=== PATIENT | male | born 1980 | race Two or more races ===

== ENCOUNTER 2025-05-01 23:53 | Inpatient (IN) | payer OTHER ==
[~2025-05-01] VITALS: Ht 188 cm; Wt 102.3 kg
[2025-05-02] VITALS (10 sets, daily range): BP systolic 105–156; BP diastolic 72–98; TEMP 98.6–99.7; O2SAT 94–98
[2025-05-02] MEDS ORDERED: IOHEXOL-300 100 ML VIAL IV ONE (00:24)
[2025-05-02] MEDS ORDERED: CT SWABBABLE VALVE TRANS SET 1 EA INFUS.SET MC ONE (00:24)
[2025-05-02] MEDS ORDERED: IV NS 0.9% 250 ML IV ONE (00:24)
[2025-05-02] MEDS ORDERED: MORPHINE SULFATE INJ 4 MG/ML DISP.SYRIN ONE ×2 (00:39→03:55)
[2025-05-02] MEDS ORDERED: ONDANSETRON HCL/PF 4 MG/2 ML VIAL ONE (00:39)
[2025-05-02 00:44] LABS: PLATELET COUNT (AUTO) 399 K/uL (150-450); RED BLOOD CELL COUNT(AUTO) 4.78 MIL/uL (4.5-6.0); RED CELL DISTRIBUTION WIDTH 15.5 % (11.5-15.0); WHITE BLOOD COUNT (AUTO) 16.3 K/uL (4.3-11.0)
[2025-05-02] MEDS: ONDANSETRON HCL/PF 4 MG/2 ML VIAL IVP ONE (00:48)
[2025-05-02] MEDS: MORPHINE SULFATE INJ 2 MG/ML DISP.SYRIN IV ONE (00:48)
[2025-05-02] MEDS: IV NS 0.9% 1,000 ML BAG IV ONE (00:48)
[2025-05-02 00:49] LABS: CALCIUM, SERUM 8.5 mg/dL (8.5-10.1); CREATININE 0.9 mg/dL (0.6-1.3); SODIUM SERUM 139.0 mmol/L (136-145); UREA NITROGEN, BLOOD 11.0 mg/dL (7-18)
[2025-05-02 00:51] LABS: APPEARANCE,URINE CLEAR (CLEAR); BLOOD, URINE 3+ Ery/uL (NEGATIVE); LEUKOCYTE ESTERASE ,URINE NEGATIVE (NEGATIVE); NITRITE, URINE NEGATIVE (NEGATIVE); UGLUCOSE NEGATIVE (NEGATIVE)
[2025-05-02 00:55] LABS: ASPARTATE AMINOTRANSFERASE 16.0 U/L (15-37); TOTAL PROTEIN, SERUM 7.4 g/dL (6.4-8.2)
[2025-05-02 00:58] LABS: ADD URINE CULTURE NO; LACTIC ACID 0.6 mmol/L (0.4-2.0); SQUAMOUS EPITHELIAL CELL,UR None Seen /HPF (None Seen)
[2025-05-02] MEDS ORDERED: PIPERACI/TAZO 3.375GM/D5W 50ML PB IV ONE (02:01)
[2025-05-02] MEDS: PIPERACILLIN /TAZOBACTAM 2.25 G in IV D5W 50 ML IV ONE (02:06)
[2025-05-02] MEDS ORDERED: FENTANYL PF 250MCG/5ML AMPUL ONE ×2 (03:23→03:55)
[2025-05-02] MEDS ORDERED: SEVOFLURANE 250 ML BOTTLE IH ONE (03:24)
[2025-05-02] MEDS ORDERED: SUCCINYLCHOLINE CHLORIDE 20 MG/ML VIAL ONE (03:24)
[2025-05-02] MEDS ORDERED: ROCURONIUM BROMIDE 50 MG/5 ML ONE (03:25)
[2025-05-02] MEDS ORDERED: HYDROMORPHONE INJ 2 MG/ML DISP.SYRIN ONE (06:31)
[2025-05-02] MEDS ORDERED: ANESTHESIA TRAY IN PYXIS 1 EA TRAY MC ONE (06:57)
[2025-05-02] MEDS ORDERED: HYDROMORPHONE 1 MG/1 ML DISP.SYRIN IV PRN (08:00)
[2025-05-02] MEDS: HYDROMORPHONE 1 MG/1 ML DISP.SYRIN IV PRN (09:47)
[2025-05-02] MEDS: ZOSYN IVPB 3.375 G in IV D5W 50ml IV SCH (09:47)
[2025-05-03] MEDS ORDERED: hydrALAZINE HCL IV 20 MG VIAL IV PRN (06:30)
[2025-05-03] MEDS ORDERED: ACETAMINOPHEN 325 MG TABLET PO PRN (06:30)
[2025-05-03] MEDS: IV NS 0.9% 1,000 ML IV SCH (06:38)
[2025-05-03 07:12] LABS: PLATELET COUNT (AUTO) 430 K/uL (150-450); RED BLOOD CELL COUNT(AUTO) 4.35 MIL/uL (4.5-6.0); RED CELL DISTRIBUTION WIDTH 15.5 % (11.5-15.0); WHITE BLOOD COUNT (AUTO) 15.2 K/uL (4.3-11.0)
[2025-05-03 07:25] LABS: ASPARTATE AMINOTRANSFERASE 17.0 U/L (15-37); CALCIUM, SERUM 8.3 mg/dL (8.5-10.1); CREATININE 0.9 mg/dL (0.6-1.3); SODIUM SERUM 144.0 mmol/L (136-145); TOTAL PROTEIN, SERUM 6.5 g/dL (6.4-8.2); UREA NITROGEN, BLOOD 12.0 mg/dL (7-18)
[2025-05-03 08:55] VITALS: BP 123/81; TEMP 98.2; O2SAT 91
[2025-05-03] MEDS ORDERED: HYDROMORPHONE 1 MG/1 ML DISP.SYRIN IV PRN (09:30)
[2025-05-03] MEDS: ENOXAPARIN SODIUM 40 MG/0.4 ML DISP.SYRIN SQ SCH (09:34)
[2025-05-03] MEDS: HYDROMORPHONE 1 MG/1 ML DISP.SYRIN IV PRN (09:35)
[2025-05-03] MEDS: PIPERACILLIN /TAZOBACTAM 3.375 G in IV D5W 100 ML IV SCH (15:00)
[2025-05-03 16:27] VITALS: BP 132/70; TEMP 99.1; O2SAT 99
[2025-05-03 20:00] VITALS: BP 111/53; TEMP 99; O2SAT 92
[2025-05-04 07:06] LABS: PLATELET COUNT (AUTO) 430 K/uL (150-450); RED BLOOD CELL COUNT(AUTO) 4.08 MIL/uL (4.5-6.0); RED CELL DISTRIBUTION WIDTH 15.1 % (11.5-15.0); WHITE BLOOD COUNT (AUTO) 12.5 K/uL (4.3-11.0)
[2025-05-04 07:11] LABS: CALCIUM, SERUM 8.8 mg/dL (8.5-10.1); CREATININE 0.7 mg/dL (0.6-1.3); PHOSPHORUS 2.4 mg/dL (2.5-4.9); SODIUM SERUM 143.0 mmol/L (136-145); UREA NITROGEN, BLOOD 15.0 mg/dL (7-18)
[2025-05-04 07:30] VITALS: BP 134/89; TEMP 98.6; O2SAT 93
[2025-05-04 16:00] VITALS: BP 149/100; TEMP 97.9; O2SAT 94
[2025-05-04] MEDS: Sodium Phosphate 15 MMOL in IV NS 0.9% 245 ML IV SCH (16:13)
[2025-05-04 21:12] VITALS: BP 136/99; TEMP 99.1; O2SAT 94
[2025-05-05 04:00] VITALS: BP 153/90; TEMP 97.9; O2SAT 98
[2025-05-05] MEDS: ONDANSETRON HCL/PF 4 MG/2 ML VIAL IVP PRN (04:06)
[2025-05-05 07:41] LABS: CALCIUM, SERUM 8.9 mg/dL (8.5-10.1); CREATININE 0.6 mg/dL (0.6-1.3); PHOSPHORUS 3.8 mg/dL (2.5-4.9); SODIUM SERUM 142.0 mmol/L (136-145); UREA NITROGEN, BLOOD 17.0 mg/dL (7-18)
[2025-05-05 08:00] VITALS: BP 143/96; TEMP 99; O2SAT 97
[2025-05-05 08:43] LABS: PLATELET COUNT (AUTO) 527 K/uL (150-450); RED BLOOD CELL COUNT(AUTO) 4.53 MIL/uL (4.5-6.0); RED CELL DISTRIBUTION WIDTH 14.7 % (11.5-15.0); WHITE BLOOD COUNT (AUTO) 12.4 K/uL (4.3-11.0)
[2025-05-05 18:00] VITALS: BP 141/96; TEMP 97.9; O2SAT 97
[2025-05-05 20:00] VITALS: BP 126/99; TEMP 97.5; O2SAT 97
[2025-05-06 07:58] LABS: CALCIUM, SERUM 8.7 mg/dL (8.5-10.1); CREATININE 0.8 mg/dL (0.6-1.3); SODIUM SERUM 137.0 mmol/L (136-145); UREA NITROGEN, BLOOD 11.0 mg/dL (7-18)
[2025-05-06 08:00] VITALS: BP 133/97; TEMP 98.1; O2SAT 97
[2025-05-06 15:00] VITALS: BP 134/92; TEMP 97.7; O2SAT 95
[2025-05-06 16:00] VITALS: BP 134/92; TEMP 97.7; O2SAT 95
[2025-05-06 20:00] VITALS: BP 125/88; TEMP 97.9; O2SAT 98
[2025-05-07 06:46] LABS: PLATELET COUNT (AUTO) 537 K/uL (150-450); RED BLOOD CELL COUNT(AUTO) 4.37 MIL/uL (4.5-6.0); RED CELL DISTRIBUTION WIDTH 14.3 % (11.5-15.0); WHITE BLOOD COUNT (AUTO) 11.7 K/uL (4.3-11.0)
[2025-05-07 07:05] LABS: CALCIUM, SERUM 8.6 mg/dL (8.5-10.1); CREATININE 0.6 mg/dL (0.6-1.3); PHOSPHORUS 3.8 mg/dL (2.5-4.9); SODIUM SERUM 140.0 mmol/L (136-145); UREA NITROGEN, BLOOD 10.0 mg/dL (7-18)
[2025-05-07] MEDS ORDERED: AMOX-430 PO (09:17)
[2025-05-07] MEDS: POTASSIUM CHLORIDE 20 MEQ TAB.PRT.SR PO ONE (09:36)
== END 2025-05-07 11:13 | disposition home or self-care (01) | DRG 710 ==
LOC: ER 05-02 00:06 → MED 05-02 05:09
PROVIDERS: ADMIT Internal Medicine; ATTEND Internal Medicine
PROC: 0DBB0ZZ Excision of Ileum, Open Approach (ICD-10-PCS; 2025-05-02)
PROC: 0DNU0ZZ Release Omentum, Open Approach (ICD-10-PCS; 2025-05-02)
PROC: 0D9W00Z Drainage of Peritoneum with Drainage Device, Open Approach (ICD-10-PCS; 2025-05-02)
PROC: 0DBH0ZZ Excision of Cecum, Open Approach (ICD-10-PCS; principal; 2025-05-02 03:00)
DX: A41.9 Sepsis, unspecified organism (principal); K65.1 Peritoneal abscess; K56.50 Intestinal adhesions [bands], unspecified as to partial versus complete obstruction; K63.1 Perforation of intestine (nontraumatic); K50.012 Crohn's disease of small intestine with intestinal obstruction; K63.89 Other specified diseases of intestine; K50.014 Crohn's disease of small intestine with abscess; Z72.0 Tobacco use; Z71.6 Tobacco abuse counseling; Z83.79 Family history of other diseases of the digestive system
CPT/HCPCS: 36415; 80048-TC; 80053-TC; 80076-TC; 81001; 83605-TC; 83690-TC; 83735-TC; 84100-TC; 85025-TC; 88307-TC; 94799-TC; A4223; A6223; A6253; A6254; A9563; G0378; J0330; J1100; J1171; J1650; J2270; J2405; J2543; J2704; J3010; J3490; J7030; J7050; J7060; Q9967